=== PATIENT | male | born 1970 | race Caucasian/White ===

== ENCOUNTER → 2016-09-17 | Outpatient (REF) | payer OTHER ==
[2016-09-20 00:06] LABS: Lyme Disease IgG/IgM Antibodie <0.91 ISR (0.00-0.90); Lyme Disease IgM Ab Quantitati <0.80 index (0.00-0.79)
== END ==
LOC: M LAB REF 17:03
PROVIDERS: ATTEND Nurse Practitioner Family
DX: R51 Headache (principal)